=== PATIENT | male | born 1995 | race Two or more races ===

== ENCOUNTER 2023-06-24 12:20 | Emergency (ER) | payer OTHER ==
[2023-06-24 12:22] VITALS: PULSE 72; RESP 16
== END 2023-06-24 13:32 | disposition left against medical advice (07) ==
LOC: ER 12:20
DX: S83.207A Unspecified tear of unspecified meniscus, current injury, left knee, initial encounter (principal); X58.XXXA Exposure to other specified factors, initial encounter; Y93.89 Activity, other specified; Y92.89 Other specified places as the place of occurrence of the external cause; Y99.8 Other external cause status
CPT/HCPCS: 73560; 73721; 99284